=== PATIENT | female | born 1935 | race Caucasian/White ===

== ENCOUNTER 2022-09-13 12:48 | Outpatient (CLI) | payer MEDICARE, SELFPAY ==
[2022-09-13 11:08] LABS: Abs Immature Grans 0.02 10^3/uL (0.0-0.06); Absolute Basophil Count 0.04 10^3/uL (0.0-0.2); Absolute Eosinophil Count 0.16 10^3/uL (0.0-0.7); Absolute Lymphocyte Count 2.04 10^3/uL (1.2-3.4); Absolute Monocyte Count 0.66 10^3/uL (0.1-0.8); Absolute Neutrophil Count 4.44 10^3/uL (1.2-6.7); Basophils % 0.5; Eosinophils % 2.2; HCT 38.2 % (36.0-46.0); HGB 12.8 g/dL (11.2-15.7); Immature Grans % 0.3; Lymphocytes % 27.7; MCH 34.1 pg (27.0-33.0); MCHC 33.5 % (32.0-36.0); MCV 102 fL (80-95); MPV 8.6 fL (8.0-11.0); Neutrophils % 60.3; Platelet Count 201 10^3/uL (130-400); RBC 3.75 10^6/uL (3.93-5.22); RDW 12.3 % (11.7-14.6); RDW-SD 46.7 fL; WBC 7.36 10^3/uL (4.4-10.8)
[2022-09-13 11:30] LABS: ALT 16 U/L (14-59); AST 14 U/L (15-37); Albumin 3.4 g/dL (3.4-5.0); Alkaline Phosphatase 76 U/L (46-116); Anion Gap 5.2 mmol/L (3-11); BUN 28 mg/dL (7-18); Bilirubin, Total 0.4 mg/dL (0.2-1.0); CO2 29.8 mmol/L (21.0-32.0); CREATININE 0.8 mg/dL (0.55-1.02); Calcium 9.1 mg/dL (8.5-10.1); Chloride 101 mmol/L (98-107); Estimated GFR 72.16 (mL/min/1.73m2); Glucose 105 mg/dL (74-106); Potassium 4.6 mmol/L (3.5-5.1); Sodium 136 mmol/L (136-145)
== END 2022-09-13 12:49 | disposition home or self-care (01) ==
LOC: LBO 12:52
PROVIDERS: PCP Family Medicine; Visit Provider Internal Medicine Hematology & Oncology
DX: C15.3 Malignant neoplasm of upper third of esophagus (principal)
CPT/HCPCS: 36415; 80053; 85025

== ENCOUNTER 2022-09-21 02:08 | Outpatient (CLI) | payer MEDICARE, SELFPAY ==
[2022-09-21 12:14] LABS: Abs Immature Grans 0.02 10^3/uL (0.0-0.06); Absolute Basophil Count 0.02 10^3/uL (0.0-0.2); Absolute Lymphocyte Count 0.83 10^3/uL (1.2-3.4); Absolute Monocyte Count 0.24 10^3/uL (0.1-0.8); Absolute Neutrophil Count 3.16 10^3/uL (1.2-6.7); Basophils % 0.5; Eosinophils % 2.3; HCT 34.2 % (36.0-46.0); HGB 11.4 g/dL (11.2-15.7); Immature Grans % 0.5; MCH 34.3 pg (27.0-33.0); MCHC 33.3 % (32.0-36.0); MCV 103 fL (80-95); MPV 9.2 fL (8.0-11.0); Monocytes % 5.5; Neutrophils % 72.2; Platelet Count 162 10^3/uL (130-400); RBC 3.32 10^6/uL (3.93-5.22); RDW 11.8 % (11.7-14.6); RDW-SD 44.8 fL; WBC 4.37 10^3/uL (4.4-10.8)
[2022-09-21 12:34] LABS: ALT 18 U/L (14-59); AST 16 U/L (15-37); Albumin 3.2 g/dL (3.4-5.0); Alkaline Phosphatase 64 U/L (46-116); BUN 33 mg/dL (7-18); Bilirubin, Total 0.4 mg/dL (0.2-1.0); CREATININE 0.7 mg/dL (0.55-1.02); Calcium 8.7 mg/dL (8.5-10.1); Chloride 101 mmol/L (98-107); Glucose 98 mg/dL (74-106); Potassium 4.8 mmol/L (3.5-5.1); Sodium 134 mmol/L (136-145); Total Protein 6.5 g/dL (6.4-8.2)
== END 2022-09-21 02:09 | disposition home or self-care (01) ==
LOC: LBO 02:08
PROVIDERS: PCP Family Medicine; Visit Provider Internal Medicine Hematology & Oncology
DX: C15.3 Malignant neoplasm of upper third of esophagus (principal)
CPT/HCPCS: 36415; 80053; 85025

== ENCOUNTER 2022-09-28 01:47 | Outpatient (CLI) | payer MEDICARE, SELFPAY ==
[2022-09-28 13:21] LABS: Abs Immature Grans 0.02 10^3/uL (0.0-0.06); Absolute Basophil Count 0.02 10^3/uL (0.0-0.2); Absolute Neutrophil Count 3.18 10^3/uL (1.2-6.7); Basophils % 0.5; HCT 32.8 % (36.0-46.0); HGB 11.1 g/dL (11.2-15.7); Immature Grans % 0.5; Lymphocytes % 12.4; MCH 34.9 pg (27.0-33.0); MCHC 33.8 % (32.0-36.0); MCV 103 fL (80-95); MPV 9.4 fL (8.0-11.0); Monocytes % 7.5; Neutrophils % 79.1; Platelet Count 119 10^3/uL (130-400); RBC 3.18 10^6/uL (3.93-5.22); RDW 11.9 % (11.7-14.6); RDW-SD 44.4 fL; WBC 4.02 10^3/uL (4.4-10.8)
[2022-09-28 13:42] LABS: ALT 20 U/L (14-59); AST 14 U/L (15-37); Albumin 3.2 g/dL (3.4-5.0); Alkaline Phosphatase 56 U/L (46-116); Anion Gap 3.3 mmol/L (3-11); BUN 24 mg/dL (7-18); Bilirubin, Total 0.7 mg/dL (0.2-1.0); CO2 31.7 mmol/L (21.0-32.0); CREATININE 0.7 mg/dL (0.55-1.02); Calcium 8.5 mg/dL (8.5-10.1); Chloride 98 mmol/L (98-107); Glucose 128 mg/dL (74-106); Potassium 4.5 mmol/L (3.5-5.1); Sodium 133 mmol/L (136-145); Total Protein 6.7 g/dL (6.4-8.2)
== END 2022-09-28 01:48 | disposition home or self-care (01) ==
LOC: LBO 01:47
PROVIDERS: PCP Family Medicine; Visit Provider Internal Medicine Hematology & Oncology
DX: C15.3 Malignant neoplasm of upper third of esophagus (principal)
CPT/HCPCS: 36415; 80053; 85025

== ENCOUNTER 2022-10-05 02:36 | Outpatient (CLI) | payer MEDICARE, SELFPAY ==
[2022-10-05 10:36] LABS: Abs Immature Grans 0.02 10^3/uL (0.0-0.06); Absolute Basophil Count 0.01 10^3/uL (0.0-0.2); Absolute Eosinophil Count 0.02 10^3/uL (0.0-0.7); Absolute Lymphocyte Count 0.33 10^3/uL (1.2-3.4); Absolute Monocyte Count 0.37 10^3/uL (0.1-0.8); Absolute Neutrophil Count 2.72 10^3/uL (1.2-6.7); Basophils % 0.3; Eosinophils % 0.6; HCT 30.7 % (36.0-46.0); HGB 10.5 g/dL (11.2-15.7); Immature Grans % 0.6; Lymphocytes % 9.5; MCHC 34.2 % (32.0-36.0); MCV 102 fL (80-95); MPV 9.5 fL (8.0-11.0); Monocytes % 10.7; Neutrophils % 78.3; Platelet Count 135 10^3/uL (130-400); RDW 11.8 % (11.7-14.6); RDW-SD 43.4 fL; WBC 3.47 10^3/uL (4.4-10.8)
[2022-10-05 11:06] LABS: ALT 17 U/L (14-59); AST 13 U/L (15-37); Alkaline Phosphatase 59 U/L (46-116); Anion Gap 6.7 mmol/L (3-11); BUN 27 mg/dL (7-18); Bilirubin, Total 0.6 mg/dL (0.2-1.0); CO2 29.3 mmol/L (21.0-32.0); CREATININE 0.6 mg/dL (0.55-1.02); Calcium 8.6 mg/dL (8.5-10.1); Chloride 99 mmol/L (98-107); Estimated GFR 87.91 (mL/min/1.73m2); Glucose 108 mg/dL (74-106); Potassium 4.5 mmol/L (3.5-5.1); Sodium 135 mmol/L (136-145); Total Protein 6.6 g/dL (6.4-8.2)
== END 2022-10-05 02:37 | disposition home or self-care (01) ==
LOC: LBO 02:36
PROVIDERS: PCP Family Medicine; Visit Provider Internal Medicine Hematology & Oncology
DX: C15.3 Malignant neoplasm of upper third of esophagus (principal)
CPT/HCPCS: 36415; 80053; 85025

== ENCOUNTER 2022-10-12 03:10 | Outpatient (CLI) | payer MEDICARE, SELFPAY ==
[2022-10-12 11:00] LABS: Abs Immature Grans 0.01 10^3/uL (0.0-0.06); Absolute Basophil Count 0.01 10^3/uL (0.0-0.2); Absolute Eosinophil Count 0.02 10^3/uL (0.0-0.7); Absolute Lymphocyte Count 0.25 10^3/uL (1.2-3.4); Absolute Monocyte Count 0.19 10^3/uL (0.1-0.8); Absolute Neutrophil Count 1.06 10^3/uL (1.2-6.7); Basophils % 0.6; Eosinophils % 1.3; HCT 29.8 % (36.0-46.0); Immature Grans % 0.6; Lymphocytes % 16.2; MCH 34.6 pg (27.0-33.0); MCHC 33.6 % (32.0-36.0); MCV 103 fL (80-95); MPV 9.4 fL (8.0-11.0); Monocytes % 12.3; Platelet Count 112 10^3/uL (130-400); RBC 2.89 10^6/uL (3.93-5.22); RDW 11.9 % (11.7-14.6); RDW-SD 44.1 fL
[2022-10-12 11:13] LABS: Diff Comment Diff Reviewed; RBC Morphology Normal
[2022-10-12 11:16] LABS: WBC 1.54 10^3/uL (4.4-10.8)
[2022-10-12 11:23] LABS: ALT 16 U/L (14-59); AST 19 U/L (15-37); Alkaline Phosphatase 58 U/L (46-116); Anion Gap 6.9 mmol/L (3-11); BUN 31 mg/dL (7-18); Bilirubin, Total 0.5 mg/dL (0.2-1.0); CO2 29.1 mmol/L (21.0-32.0); CREATININE 0.6 mg/dL (0.55-1.02); Calcium 8.7 mg/dL (8.5-10.1); Chloride 101 mmol/L (98-107); Estimated GFR 87.91 (mL/min/1.73m2); Glucose 109 mg/dL (74-106); Potassium 4.1 mmol/L (3.5-5.1); Sodium 137 mmol/L (136-145); Total Protein 6.5 g/dL (6.4-8.2)
== END 2022-10-12 03:11 | disposition home or self-care (01) ==
LOC: LBO 03:11
PROVIDERS: PCP Family Medicine; Visit Provider Internal Medicine Hematology & Oncology
DX: C15.3 Malignant neoplasm of upper third of esophagus (principal)
CPT/HCPCS: 36415; 80053; 85025

== ENCOUNTER 2022-10-19 03:08 | Outpatient (CLI) | payer MEDICARE, SELFPAY ==
[2022-10-19 10:52] LABS: Absolute Basophil Count 0.01 10^3/uL (0.0-0.2); Absolute Eosinophil Count 0.03 10^3/uL (0.0-0.7); Absolute Lymphocyte Count 0.36 10^3/uL (1.2-3.4); Absolute Monocyte Count 0.53 10^3/uL (0.1-0.8); Absolute Neutrophil Count 1.13 10^3/uL (1.2-6.7); Basophils % 0.5; Eosinophils % 1.5; HCT 30.1 % (36.0-46.0); HGB 10.1 g/dL (11.2-15.7); Lymphocytes % 17.5; MCH 34.7 pg (27.0-33.0); MCHC 33.6 % (32.0-36.0); MCV 103 fL (80-95); MPV 9.5 fL (8.0-11.0); Monocytes % 25.7; Neutrophils % 54.8; Platelet Count 107 10^3/uL (130-400); RBC 2.91 10^6/uL (3.93-5.22); RDW 12.9 % (11.7-14.6); RDW-SD 46.6 fL; WBC 2.06 10^3/uL (4.4-10.8)
[2022-10-19 11:29] LABS: ALT 15 U/L (14-59); AST 18 U/L (15-37); Alkaline Phosphatase 63 U/L (46-116); BUN 25 mg/dL (7-18); Bilirubin, Total 0.3 mg/dL (0.2-1.0); CREATININE 0.7 mg/dL (0.55-1.02); Calcium 8.9 mg/dL (8.5-10.1); Chloride 104 mmol/L (98-107); Glucose 116 mg/dL (74-106); Potassium 4.4 mmol/L (3.5-5.1); Sodium 140 mmol/L (136-145); Total Protein 6.5 g/dL (6.4-8.2)
== END 2022-10-19 03:09 | disposition home or self-care (01) ==
LOC: LBO 03:08
PROVIDERS: PCP Family Medicine; Visit Provider Internal Medicine Hematology & Oncology
DX: C15.3 Malignant neoplasm of upper third of esophagus (principal)
CPT/HCPCS: 36415; 80053; 85025

== ENCOUNTER 2022-11-24 12:21 | Outpatient (CLI) | payer MEDICARE, SELFPAY ==
--- OUTSIDE RECORDS SUMMARY | 2022-11-24 12:23 | XMS_ITS | Continuity of Care Document ---
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 Name Role Phone Elvis Lyons Primary Care Physician Encounter [facility] Date(s): 05/12/22 - 05/12/22 [facility] [address] [place] [address] Encounter Diagnosis Wax in ear(Discharge Diagnosis) - 05/12/22 Discharge Disposition: Home or Self Care Attending Physician: Amari Love MD Admitting Physician: Amari Love MD Allergies, Adverse Reactions, Alerts No Known Medication Allergies Assessment and Plan Future Appointments Functional Status 05/12/22 Family Member Travel History No recent t ravel Recent Travel History No recent travel Other exposure to Infectious Disease Non e Immunizations Given and Recorded Vaccine Date Status Refusal Reason SARS-CoV-2 (COVID-19) mRNA-1273 vaccine 03/28/21 R ecorded SARS-CoV-2 (COVID-19) mRNA-1273 vaccine 08/20/20 R ecorded SARS-CoV-2 (COVID-19) mRNA-1273 vaccine 07/23/20 R ecorded pneumococcal 13-valent conjugate vaccine 01/12/16 Recorded tetanus/diphth/pertuss (Tdap) adult/adol 01/12/16 Recorded tetanus/diphth/pertuss (Tdap) adult/adol 05/28/98 Recorded zoster vaccine live 10/16/07 Recorded pneumococcal 23-polyvalent vaccine 05/28/94 Record ed Medications aspirin 81 mg oral capsule 81 mg = 1 cap, Oral, Daily, do not exceed 48 capsules in 24 hours, 0 Refill(s) Start Date: 02/24/22 Status: Ordered biotin 1 tab, Daily, 0 Refill(s) Start Date: 02/24/22 Status: Ordered Debrox 6.5% otic solution 0.033 g 0.5 mL, Ear-Both, Daily, # 30 mL, 0 Refill(s), Pharmacy: [id number], 163, cm, 05/12/22 14:13:00 EST, Height/Length Dosing, 58, kg, 05/12/22 14:13:00 EST, Weight Dosing Start Date: 05/12/22 Stop Date: 05/19/22 Status: Ordered Ginkgo Biloba 1 capsule, Daily, 0 Refill(s) Start Date: 02/24/22 Status: Ordered glucosamine See Instructions, 1-2 capsules daily, 0 Refill(s) Start Date: 02/24/22 Status: Ordered ibuprofen 200 mg oral tablet 600 mg = 3 tab, Daily, per pt, 0 Refill(s) Start Date: 02/24/22 Status: Ordered metoprolol succinate 50 mg oral capsule, extended release 50 mg = 1 cap, Oral, Daily, # 90 cap, 3 Refill(s), Pharmacy: [id number], 162, cm, 03/11/22 7:16:00 EDT, Height/Length Dosing, 61, kg, 03/11/22 7:16:00 EDT, Weight Dosing Start Date: 03/20/22 Status: Ordered Multi Vitamin+ 0 Refill(s) Start Date: 02/24/22 Status: Ordered Valtrex 1 g oral tablet 1 g = 1 tab, Oral, every 12 hr, # 14 tab, 0 Refill(s), Pharmacy: [id number], 162, cm, 03/11/22 7:16:00 EDT, Height/Length Dosing, 61, kg, 03/11/22 7:16:00 EDT, Weight Dosing Start Date: 03/28/22 Stop Date: 04/04/22 Status: Ordered Problem List Condition Confirmation Course Effective Dates Status H ealth Status Informant Acute COVID-19 Confirmed Active Arthropathy Confirmed Active Benign essential hypertension Confirmed Active Closed fracture of distal end of left radius Confirmed Active Cyst of left ovary Confirmed Active Elevated blood-pressure reading without diagnosis of hypertension Confirmed Active Family history of diabetes mellitus Confirmed Active Fracture of carpal bone Confirmed Active Hyperlipidemia Confirmed Active Idiopathic osteoarthritis Confirmed Active Knee pain Confirmed Active Osteoarthritis of knee Confirmed Active Pain in limb Confirmed Active Right lower quadrant pain Confirmed Active Procedures Procedure Date Related Diagnosis Body Site Status Tonsillectomy 1950 Completed Cataract extraction 1 Com pleted , 05/2010 Vital Signs Most recent to oldest [Reference Range]: 1 Temperature Temporal Artery [36-38 Deg C ] 37 Deg C (05/12/22 2:00 PM) Peripheral Pulse Rate [60-100 bpm] 62 bp m (05/12/22 2:00 PM) Respiratory Rate [12-24 br/min] 16 br/mi n (05/12/22 2:00 PM) Blood Pressure [90-140/60-90 mmHg] 129/7 5mmHg (05/12/22 2:00 PM) Weight Dosing 58.00 kg (05/12/22 2:13 PM) Weight Estimated 58.00 kg (05/12/22 2:00 PM) Height/Length Dosing 163.000 cm (05/12/22 2:13 PM) Height/Length Estimated 163.000 cm (05/12/22 2:00 PM) Social History Social History Type Response Tobacco Former tobacco user Tobacco Use:. 1 Sex Female 1Quit 1992 Hospital Discharge Instructions Patient Education 05/12/2022 13:44:49 Ear Drops, Adult Ear Drops, Adult You have been diagnosed with a condition that requires you to put drops of medicine into one ear orboth ears. This sheet gives you information about how to use ear drops. Your health care provider may also give you more specific instructions. Supplies needed: ??? Cotton balls. ??? Ear drops. How to put ear drops in your ear 1. Wash your hands thoroughly for 20 seconds with soap and water. If soap and water are not available, use hand can stacker. 2. Make sure your ears are clean and dry. If there is any earwax or drainage at the outer part of the ear canal, wipe it out gently with a cotton-tipped swab. 3. Warm up the medicine by holding it in your hand for a few minutes. 4. Gently shake the bottle to mix the ear drops. 5. Use the dropper to draw up the ear drops. 6. Hold the dropper above your ear canal and put the drops in the affected ear as instructed. Do not put the dropper into your ear at any time. It may help to pull the upper part of the ear up and back while you put the drops in. Doing this will straighten out the ear canal so the medicine can get into the canal more easily. 7. To make sure your ear soaks up the ear drops, do either of these things: ??? Lie down with the affected ear facing up for 10 minutes. This will cause the drops to stay in the ear canal and fill the canal. ??? Gently put a cotton ball in your ear canal. Leave enough of the cotton ball out so it can be easily removed. Do not push the cotton ball down into your ear with a cotton-tipped swab or other instrument. You can remove the cotton ball once the medicine has been absorbed by your ear, or after 15???30 minutes have passed. 8. If both ears need the drops, repeat the procedure for the other ear. Your health care provider will let you know if you need to put drops in both ears. 9. Wash your hands with soap and water for 20 seconds after using ear drops. If soap and water are not available, use hand can stacker. Follow these instructions at home: ??? Use the ear drops for as long as directed by your health care provider, even if you begin to feel better. ??? Always wash your hands for 20 seconds before and after handling the ear drops. ??? Keep the ear drops at room temperature. ??? Do not wash out (irrigate) your ears unless instructed by your health care provider. ??? Keep all follow-up visits as told by your health care provider. This is important. Contact a health care provider if: ??? Your condition gets worse. ??? Your pain or itching gets worse. ??? You notice any unusual drainage from your ear, especially if the drainage has a bad smell. ??? You have new trouble hearing. ??? You develop a rash around your ear. ??? You have used the ear drops for the amount of time recommended by your health care provider, but your symptoms have not improved. Get help right away if: ??? You experience a form of dizziness in which you feel as if the room is spinning and you feel like you might vomit (vertigo). ??? The outside of your ear becomes red or swollen. ??? You develop a severe headache with or without neck stiffness. Summary ??? Ear drops are a medicine that is placed in the ear. ??? Put drops in the affected ear as told by your health care provider. ??? Use the ear drops for as long as directed by your health care provider, even if you begin to feel better. ??? Keep all follow-up visits as told by your health care provider. This is important. This information is not intended to replace advice given to you by your health care provider. Make sure you discuss any questions you have with your health care provider. Document Revised: 07/07/2020 Document Reviewed: 03/10/2020 [employer] Patient Education ?? 2021 [employer]. Physician Emergency department Note * Brianne Bowen MD: PERFORM Event Display: ED Note Physician Authored Date: [id number] LALIT COE :1935 Age:86 years Sex:Female Visit Date:05/12/2022 Primary Care Physician: Elvis Lyons MD Basic Information Time Seen: Brianne Bwoen MD / 05/12/2022 14:37 Chief Complaint Three days of my ears feel plugged. History Of Present Illness: 86F?? presents to the ED c/o b/l ear fullness sensation since yesterday. Pt says she cleans her ears often, and she feels like she didn't do a good job this time. She has some decreased hearing in both ears. No congestion, no cough, no ear pain, no fever/chills. No recent fall or trauma. Review of Systems: In addition to the ROS embedded in the HPI, the patient has no Const: fever, chills,?? CV: chest pain or palpitations Pulm: shortness of breath GI: n/v/c/d or abd pain Physical Exam Vitals & Measurements T:??37?C ??(Temporal Artery)?? HR:??62??(Peripheral)?? RR:??16?? BP:??129/75?? SpO2:??99%?? HT:??163.000??cm?? WT:??58.00??kg??(Estimated)?? General: A&Ox3, Calm, no apparent distress, well developed, pleasant and cooperative ?? HEENT: Head ATNC. Eyes: MATI. Extraocular Mobility: intact and symmetrical. Conjunctiva: non-injected, anicteric, no discharge.?? Bilateral ears??with intact??tympanic??membranes, very little wax??seen. ??Oral Cavity: moist. Neck: no masses, no crepitus. Lymph Nodes: no cervical lymphadenopathy? Respiratory: CTA bilaterally, no wheezing, no rales/crackles? CV: RRR, normal S1, normal S2, no murmurs, rubs or gallops ?? Abdomen : soft, non-tender, non-distended, no rebound or guarding, no hepatosplenomegaly ?? Extremities: no le swelling, warm and well-perfused, no cyanosis, capillary refill <2 seconds? Skin: no rash, no lesions, no bruising? Neuro: normal tone, normal strength in all 4 extremities, sensation intact?? Medical Decision MakinF?? presents to the ED c/o b/l ear fullness sensation since yesterday. Exam is reassuring with intact??tympanic membranes??and no evidence of otitis externa either.?? Encouraged patient to not use Q-tips??but use Debrox??drops.?? Discharge instructions and return precautions discussed, all questions answered. Procedure No Qualifying Data Assessment/Plan 1.??Wax in ear??H61.20 Ordered: Debrox 6.5% otic solution, 0.033 g 0.5 mL, Ear-Both, Daily, # 30 mL, 0 Refill(s), Pharmacy: [id number], 163, cm, 05/12/22 14:13:00 EST, Height/Length Dosing, 58, kg, 05/12/22 14:13:00 EST, Weight Dosing Discharge Patient, 05/12/22 14:46:00 EST, Constant Indicator ?? Patient Education Ear Drops, Adult Medication Reconciliation New Prescription carbamide peroxide otic (Debrox 6.5% otic solution)0.5 Milliliters Both ears every day for 7 Days. Refills: 0. ?? Unchanged aspirin (aspirin 81 mg oral capsule)1 Capsules Oral (given by mouth) every day. do not exceed 48 capsules in 24 hours. ?? biotin1 tab every day. ?? ginkgo (Ginkgo Biloba)1 capsule every day. ?? glucosamine1-2 capsules daily. ?? ibuprofen (ibuprofen 200 mg oral tablet)3 tab every day. per pt. ?? metoprolol (metoprolol succinate 50 mg oral capsule, extended release)1 Capsules Oral (given by mouth) every day. Refills: 3. ?? multivitamin (Multi Vitamin+) ?? valACYclovir (Valtrex 1 g oral tablet)1 tab Oral (given by mouth) every 12 hours for 7 Days. Refills: 0. Problem List/Past Medical History Ongoing Acute COVID-19 Arthropathy Benign essential hypertension Closed fracture of distal end of left radius Cyst of left ovary Elevated blood-pressure reading without diagnosis of hypertension Family history of diabetes mellitus Fracture of carpal bone Hyperlipidemia Idiopathic osteoarthritis Knee pain Osteoarthritis of knee Pain in limb Right lower quadrant pain Historical No qualifying data Procedure/Surgical History ???Tonsillectomy (1950)???Cataract extraction Allergies No Known Medication Allergies Social History Alcohol Past Electronic Cigarette/Vaping Electronic Cigarette Use: Never. Employment/School Retired Home/Environment Lives with Children. Living situation: Home/Independent. Tobacco Former tobacco user Tobacco Use:.- Comments: Quit 1992 Family History Family history is negative Electronically Signed on 05/12/22 03:06 PM Brianne Bowen MD Emergency department Discharge instructions * Brianne Bowen MD: PERFORM Event Display: ED Discharge Information Authored Date: [id number] LALIT COE :1935 Age:86 years Sex:Female Visit Date:05/12/2022 Primary Care Physician: Elvis Lyons MD Discharge Instructions We would like to thank you for allowing us to assist you with your healthcare needs. The following includes patient education materials and information regarding your injury/illness. Diagnosis from Today's Visit Wax in ear Discharge Vitals Temperature??(Temporal Artery) 98.6 ??F (37 ??C) Heart Rate??(Peripheral) 62 Respiratory Rate?? 16 Blood Pressure?? 129/75?? Height?? 64.17 in (163.000 cm) Weight??(Estimated) 127.89 lb (58.00 kg) Allergies No Known Medication Allergies What to Do Next Instructions from Your Care Team Please do not use q tips when cleaning ears. Prefer drops of debrosq. Follow up with your primary care provider for reevaluation in 1-2 weeks if your symptoms persist. Return to the ED for any new orworsening symptoms. Upcoming Scheduled Appointments 2022 9:15 AM EST ?? 2022 8:40 AM EDT ?? Sunday 11:00 AM EST ?? You were treated today on an emergency basis; it may be brown to contact your primary care provider to notify them of your visit today. You may have been referred to your regular doctor or a specialist, please follow up as instructed. If your condition worsens or you can't get in to see the doctor, contact the Emergency Department. Medications What How Much When Why Instructions Next Dose New carbamide peroxide otic (Debrox 6.5% otic solution) 0.5 Milliliters Both ears Every day Wax in ear Duration: 7 Days Pickup at [facility] Unchanged aspirin (aspirin 81 mg oral capsule) 1 Capsules Oral (given by mouth) Every day do not exceed 48 capsules in 24 hours ?? Unchanged biotin 1 tab Every day Unchanged ginkgo (Ginkgo Biloba) 1 capsule Every day Unchanged glucosamine See instructions 1-2 capsules daily ?? Unchanged ibuprofen (ibuprofen 200 mg oral tablet) 3 tab Every day per pt ?? Unchanged metoprolol (metoprolol succinate 50 mg oral capsule, extended release) 1 Capsules Oral (given by mouth) Every day SVT (supraventricular tachycardia) Globus sensation Unchanged multivitamin (Multi Vitamin+) Unchanged valACYclovir (Valtrex 1 g oral tablet) 1 tab Oral (given by mouth) Every 12 hours Shingles rash Duration: 7 Days Pharmacy Information [facility]: [address], [place] [id number] [phone] Education Materials Ear Drops, Adult You have been diagnosed with a condition that requires you to put drops of medicine into one ear orboth ears. This sheet gives you information about how to use ear drops. Your health care provider may also give you more specific instructions. Supplies needed: ? Cotton balls. ? Ear drops. How to put ear drops in your ear 1.?? Wash your hands thoroughly for 20 seconds with soap and water. If soap and water are not available,use hand can stacker. 2.?? Make sure your ears are clean and dry. If there is any earwax or drainage at the outer part of the ear canal, wipe it out gently with a cotton-tipped swab. 3.?? Warm up the medicine by holding it in your hand for a few minutes. 4.?? Gently shake the bottle to mix the ear drops. 5.?? Use the dropper to draw up the ear drops. 6.?? Hold the dropper above your ear canal and put the drops in the affected ear as instructed. Do not put the dropper into your ear at any time. It may help to pull the upper part of the ear up and back while you put the drops in. Doing this will straighten out the ear canal so the medicine can get into the canal more easily. 7.?? To make sure your ear soaks up the ear drops, do either of these things: ? Lie down with the affected ear facing up for 10 minutes. This will cause the drops to stay in the ear canal and fill the canal. ? Gently put a cotton ball in your ear canal. Leave enough of the cotton ball out so it can be easilyremoved. Do not push the cotton ball down into your ear with a cotton-tipped swab or other instrument. You can remove the cotton ball once the medicine has been absorbed by your ear, or after 15???30minutes have passed. 8.?? If both ears need the drops, repeat the procedure for the other ear. Your health care provider willlet you know if you need to put drops in both ears. 9.?? Wash your hands with soap and water for 20 seconds after using ear drops. If soap and water are notavailable, use hand can stacker. Follow these instructions at home: ? Use the ear drops for as long as directed by your health care provider, even if you begin to feel better. ? Always wash your hands for 20 seconds before and after handling the ear drops. ? Keep the ear drops at room temperature. ? Do not wash out (irrigate) your ears unless instructed by your health care provider. ? Keep all follow-up visits as told by your health care provider. This is important. Contact a health care provider if: ? Your condition gets worse. ? Your pain or itching gets worse. ? You notice any unusual drainage from your ear, especially if the drainage has a bad smell. ? You have new trouble hearing. ? You develop a rash around your ear. ? You have used the ear drops for the amount of time recommended by your health care provider, but your symptoms have not improved. Get help right away if: ? You experience a form of dizziness in which you feel as if the room is spinning and you feel like you might vomit (vertigo). ? The outside of your ear becomes red or swollen. ? You develop a severe headache with or without neck stiffness. Summary ? Ear drops are a medicine that is placed in the ear. ? Put drops in the affected ear as told by your health care provider. ? Use the ear drops for as long as directed by your health care provider, even if you begin to feel better. ? Keep all follow-up visits as told by your health care provider. This is important. This information is not intended to replace advice given to you by your health care provider. Make sure you discuss any questions you have with your health care provider. Document Revised: 07/07/2020 Document Reviewed: 03/10/2020 [employer] Patient Education ?? 2021 [employer] Patient/Button Decorating Machine Operator Signature Patient Name:LALIT COE I have received this information and my questions have been answered. Patient/Button Decorating Machine Operator Name: Patient/Button Decorating Machine Operator Signature: Relationship to Patient: Witness Name/Signature: Date: Electronically Signed on: 05/12/2022 14:46 ESTSigned by:[facility] Emergency department Note * Iveth Chavez: PERFORM Event Display: ED Notes Authored Date: [id number] Patient Care team information Personnel Name: lEvis Lyons MD Address: Address: [address]
--- OUTSIDE RECORDS SUMMARY | 2022-11-24 12:23 | XMS_ITS | Continuity of Care Document ---
Author Name Unknown Organization [facility] Address [address] [place] [address] Care Team Providers Care Learning And Development Consultant Name Role Phone Elvis Lyons Primary Care Physician [phone] Encounter [facility] Date(s): 06/23/22 - 06/23/[address] [address] Discharge Disposition: Home or Self Care Attending Physician: Rito Davis MD Admitting Physician: Rito Davis MD Referring Physician: Rito Davis MD Allergies, Adverse Reactions, Alerts No Known Medication Allergies Assessment and Plan Future Appointments Future Scheduled Tests Radiology* CT Chest/Abd/Pelvis w/ Contrast 06/20/22 Functional Status 06/23/22 ADLs Independent Family Member Travel History No recent t ravel Recent Travel History No recent travel Other exposure to Infectious Disease Non e 06/20/22 Living Situation Home independently Immunizations Given and Recorded Vaccine Date Status [...] Daily, # 30 mL, 0 Refill(s), Pharmacy: [email or web address] #[id number], 163, cm, 05/12/22 14:13:00 EST, Height/Length [...] Daily, # 90 cap, 3 Refill(s), Pharmacy: [email or web address] #58, 162, cm, 03/11/22 7:16:00 EDT, Height/Length Dosing, 61, kg, 03/11/22 7:16:00 EDT, Weight Dosing Start Date: 03/20/22 Status: Ordered Multi Vitamin+ 0 Refill(s) Start Date: 02/24/22 Status: Ordered Valtrex 1 g oral tablet 1 g = 1 tab, Oral, every 12 hr, # 14 tab, 0 Refill(s), Pharmacy: [email or web address] #58, 162, cm, 03/11/22 7:16:00 EDT, Height/Length [...] Most recent to oldest [Reference Range]: 1 2 3 Temperature Oral [35.8-37.3 Deg C] 36.9 Deg C (06/23/22 12:29 PM) Temperature Temporal Artery [36-38 Deg C] 36.3 Deg C (06/23/22 2:45 PM) 36.3 Deg C (06/23/22 2:16 PM) Temperature Temporal Artery (DegF) [97.3-100 Deg F] 97.34 Deg F (06/23/22 2:45 PM) 97.34 Deg F (06/23/22 2:16 PM) Peripheral Pulse Rate [60-100 bpm] 79 bpm (06/23/22 2:45 PM) 83 bpm (06/23/22 2:30 PM) 69 bpm (06/23/22 2:25 PM) Heart Rate Monitored [60-100 bpm] 80 bpm (06/23/22 2:45 PM) 81 bpm (06/23/22 2:30 PM) 70 bpm (06/23/22 2:25 PM) Respiratory Rate [12-24 br/min] 14 br/min (06/23/22 2:45 PM) 19 br/min (06/23/22 2:30 PM) 22 br/min (06/23/22 2:25 PM) Blood Pressure [90-140/60-90 mmHg] 160/73mmHg *HI* (06/23/22 2:45 PM) 130/86mmHg (06/23/22 2:30 PM) 124/101mmHg (06/23/22 2:25 PM) Mean Arterial Pressure, Cuff [65-140 mmHg] 102 mmHg (06/23/22 2:45 PM) 101 mmHg (06/23/22 2:30 PM) 109 mmHg (06/23/22 2:25 PM) Weight 56.600 kg (06/23/22 12:29 PM) Weight Dosing 56.600 kg (06/23/22 12:29 PM) Height 163.000 cm (06/23/22 12:29 PM) Height/Length Dosing 163.000 cm (06/23/22 12:29 PM) Body Mass Index 21.300 kg/m2 (06/23/22 12:29 PM) Social History Social History Type Response Tobacco Former tobacco user Tobacco Use:. 1 Sex Female 1Quit 1992 Hospital Discharge Instructions Patient Education 06/23/2022 13:40:25 ss UPPER ENDOSCOPY OR GASTROSCOPY (CUSTOM) UPPER ENDOSCOPY OR GASTROSCOPY FOLLOWING DAY: ??? Return to full activity, including work. DIET: Eat and drink normally, unless instructed otherwise. TREATMENT FOR COMMON AFTER EFFECTS: Sore throat: ??? Treat with throat lozenges; gargle with warm salt water. Mild abdominal pain and bloating: ??? Rest and take liquids. SYMPTOMS TO WATCH FOR AND REPORT TO YOUR PHYSICIAN: 1. Chills or fever occurring within 24 hours after procedure. 2. Pain in chest. 3. SEVERE abdominal pain or bloating. 4. If sclerotherapy or dilatation was performed, notify physician for vomiting or bright red blood or dark stools. Do not attempt to drive a vehicle or operate power equipment of any kind for at least 24 hours after discharge from the hospital. Do not consume alcoholic beverages or other mood-altering drugs on the day of surgery. Mild irritation at needle site: a. Apply warm, moist pack to area for 20 minutes four times a day for 2-3 days. b. Call physician if persistent redness and/or drainage at needle site. Doctor: Diagnosis: Follow up appointment: In the event of any problems after surgery, do not hesitate to contact your doctor, [facility] , or the Emergency Room at [phone]. 06/23/2022 13:36:19 ss UPPER ENDOSCOPY OR GASTROSCOPY (CUSTOM) UPPER ENDOSCOPY OR GASTROSCOPY FOLLOWING DAY: ??? Return to full activity, including work. DIET: Eat and drink normally, unless instructed otherwise. TREATMENT FOR COMMON AFTER EFFECTS: Sore throat: ??? Treat with throat lozenges; gargle with warm salt water. Mild abdominal pain and bloating: ??? Rest and take liquids. SYMPTOMS TO WATCH FOR AND REPORT TO YOUR PHYSICIAN: 1. Chills or fever occurring within 24 hours after procedure. 2. Pain in chest. 3. SEVERE abdominal pain or bloating. 4. If sclerotherapy or dilatation was performed, notify physician for vomiting or bright red blood or dark stools. Do not attempt to drive a vehicle or operate power equipment of any kind for at least 24 hours after discharge from the hospital. Do not consume alcoholic beverages or other mood-altering drugs on the day of surgery. Mild irritation at needle site: a. Apply warm, moist pack to area for 20 minutes four times a day for 2-3 days. b. Call physician if persistent redness and/or drainage at needle site. Doctor: Diagnosis: Follow up appointment: In the event of any problems after surgery, do not hesitate to contact your doctor, [facility] , or the Emergency Room at [phone]. Discharge instructions * Hong Jean RN: PERFORM Event Display: Discharge Instructions Authored Date: [id number] LALIT COE :1935 Age:86 years Sex:Female Visit Date:06/23/2022 Primary Care Physician: Elvis Lyons MD Hospital Discharge Instructions We would like to thank you for allowing us to assist you with your healthcare needs. The following includes patient education materials and information regarding your injury/illness. After you leave the hospital, you may get your health information including your test results, physician notes and discharge information by accessing your Patient Portal. Your Next Steps Instructions From Your Care Team Dr. Davis or Office will call with pathology results within 5-7 days. Discharge Orders Discharge Patient Instructions, Rest today. Resume diet and activities as tolerated. Scheduled Future Appointments Sunday 8:20 AM EDT ?? With: Elvis Lyons MD Where: [facility] [address] [address] Status: Confirmed Sunday 11:00 AM EST ?? With: Elvis Lyons MD Where: [facility] [address] [address] Status: Confirmed Your Summary Your Care Team Admitting Physician - Rito Davis MD Attending Physician - Rito Davis MD Primary Care Physician - Elvis Lyons MD Referring Physician - Rito Davis MD Allergies No Known Medication Allergies Education Materials UPPER ENDOSCOPY OR GASTROSCOPY FOLLOWING DAY: ??? Return to full activity, including work. DIET: Eat and drink normally, unless instructed otherwise. TREATMENT FOR COMMON AFTER EFFECTS: Sore throat: ??? Treat with throat lozenges; gargle with warm salt water. Mild abdominal pain and bloating: ??? Rest and take liquids. SYMPTOMS TO WATCH FOR AND REPORT TO YOUR PHYSICIAN: 1. Chills or fever occurring within 24 hours after procedure. 2. Pain in chest. 3. SEVERE abdominal pain or bloating. 4. If sclerotherapy or dilatation was performed, notify physician for vomiting or bright red blood or dark stools. Do not attempt to drive a vehicle or operate power equipment of any kind for at least 24 hours after discharge from the hospital. Do not consume alcoholic beverages or other mood-altering drugs on the day of surgery. Mild irritation at needle site: a. Apply warm, moist pack to area for 20 minutes four times a day for 2-3 days. b. Call physician if persistent redness and/or drainage at needle site. ? Doctor: Diagnosis: Follow up appointment: ? In the event of any problems after surgery, do not hesitate to contact your doctor, [facility] , or the Emergency Room at [phone]. Patient Name:LALIT COE I have received this information and my questions have been answered. Patient/Budget Examiner Name: Patient/Budget Examiner Signature: Relationship to Patient: Witness Name/Signature: Date: Electronically Signed on: 06/23/2022 14:40 ESTSigned by:TD History and physical note * Rito Davis MD: PERFORM Event Display: History and Physical Authored Date: [id number] LALIT COE :1935 Age:86 years Sex:Female Visit Date:06/23/2022 Primary Care Physician: Elvis Lyons MD See paper H&P along with original surgical consultation with Dr. Ugalde on 06/16/22; pt examined.Proceed as planned.? Rito Davis MD 06/23/2022 ?? Electronically Signed on 06/23/22 12:57 PM Rito Davis MD * Kenzie Dawkins: PERFORM Event Display: History and Physical Authored Date: [id number] LALIT COE :1935 Age:86 years Sex:Female Primary Care Physician: Elvis Lyons MD Patient saw Dr. Ugalde in office in May. 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
--- OUTSIDE RECORDS SUMMARY | 2022-11-24 12:23 | XMS_ITS | Continuity of Care Document ---
Author Name Unknown Organization [facility] Address [address] [place] [address] Care Team Providers Care Industrial Electrical Technician Name Role Phone Elvis Lyons Primary Care Physician Encounter [facility] Date(s): 03/11/22 - 03/11/22 [facility] [address] [place] [address] Encounter Diagnosis SVT (supraventricular tachycardia)(Discharge Diagnosis) - 03/11/22 Globus sensation(Discharge Diagnosis) - 03/11/22 Discharge Disposition: Home or Self Care Attending Physician: Ismael Chase MD Admitting Physician: Ismael Chase MD Allergies, Adverse Reactions, Alerts No Known Medication Allergies Assessment and Plan Future Appointments Functional Status 03/11/22 Family Member Travel History No recent t ravel Recent Travel History No recent travel Other exposure to Infectious Disease Com munity exposure to COVID-19 within the last 14 days Immunizations Given and Recorded Vaccine Date Status [...] 0 Refill(s) Start Date: 02/24/22 Status: Ordered Ginkgo Biloba 1 capsule, Daily, 0 Refill(s) Start Date: 02/24/22 Status: Ordered glucosamine See Instructions, 1-2 capsules daily, 0 Refill(s) Start Date: 02/24/22 Status: Ordered ibuprofen 200 mg oral tablet 600 mg = 3 tab, Daily, per pt, 0 Refill(s) Start Date: 02/24/22 Status: Ordered loratadine 10 mg oral tablet 1 tab, Oral, Daily, 0 Refill(s) Start Date: 02/24/22 Status: Ordered metoprolol succinate 50 mg oral capsule, extended release 50 mg = 1 cap, Oral, Daily, # 30 cap, 0 Refill(s), Pharmacy: [facility], 162, cm, 03/11/22 7:16:00 EDT, Height/Length Dosing, 61, kg, 03/11/22 7:16:00 EDT, Weight Dosing Start Date: 03/11/22 Status: Ordered Multi Vitamin+ 0 Refill(s) Start Date: 02/24/22 Status: Ordered Paxlovid 150 mg-100 mg (300 mg-100 mg Dose) oral tablet 2 tab, Oral, BID, RENAL DOSING (30-60 ml/min). Take one 150 mg nirmatrelvir tablet with one 100 mg ritonavir tablet at the same time as indicated on the blister cards. Provide Fact Sheet for Patients/Caregivers, # 20 tab, 0 Refill(s), Pharmacy: [facility]... Start Date: 03/06/22 Stop Date: 03/11/22 Status: Ordered Problem List Condition Confirmation Course [...] Cataract extraction 1 Com pleted , 05/2010 Results Laboratory List Name Date CBC w/ Diff 03/11/22 Comprehensive Metabolic Panel (CMP) 02/25 10/16 Magnesium Level 03/11/22 Automated Diff 03/11/22 Most recent to oldest [Reference Range]: 1 WBC [5.0-10.0 x10^3/mcL] 6.4 x10^3/mcL (03/11/22 7:36 AM) RBC [4.1-5.3 x10^6/mcL] 3.8 x10^6/mcL *LOW* (03/11/22 7:36 AM) Neutro Auto [40.0-75.0 %] 64.4 % (03/11/22 7:36 AM) Lymph Auto [20.0-50.0 %] 23.9 % (03/11/22 7:36 AM) Coke Auto [2.0-15.0 %] 8.9 % (03/11/22 7:36 AM) Basophil Auto [0.0-1.0 %] 0.2 % (03/11/22 7:36 AM) BUN [7-18 mg/dL] 8 mg/dL (03/11/22 7:36 AM) Glucose Level [74-106 mg/dL] 104 mg/dL (03/11/22 7:36 AM) Potassium Level [3.5-5.1 mmol/L] 3.7 mmo l/L (03/11/22 7:36 AM) MCV [80.0-103.0 fL] 98.4 fL (03/11/22 7:36 AM) AST [15-37 unit/L] 22 unit/L (03/11/22 7:36 AM) ALT [16-63 unit/L] 27 unit/L (03/11/22 7:36 AM) MCHC [31.0-35.0 g/dL] 34.7 g/dL (03/11/22 7:36 AM) Sodium Level [136-145 mmol/L] 135 mmol/L *LOW* (03/11/22 7:36 AM) Hct [37.0-47.0 %] 37.5 % (03/11/22 7:36 AM) Calcium Level [8.5-10.1 mg/dL] 8.6 mg/dL (03/11/22 7:36 AM) Albumin Level [3.4-5.0 g/dL] 3.3 g/dL *LOW* (03/11/22 7:36 AM) Protein Total [6.4-8.2 g/dL] 6.7 g/dL (03/11/22 7:36 AM) MCH [26.0-32.0 pg] 34.1 pg *HI* (03/11/22 7:36 AM) Magnesium Level [1.8-2.4 mg/dL] 1.8 mg/d L (03/11/22 7:36 AM) Neutro Absolute 4.1 x10^3/mcL *NA* (03/11/22 7:36 AM) Bilirubin Total [0.2-1.0 mg/dL] 0.6 mg/d L (03/11/22 7:36 AM) Hgb [12.0-16.0 g/dL] 13.0 g/dL (03/11/22 7:36 AM) Alk Phos [46-146 unit/L] 81 unit/L (03/11/22 7:36 AM) Platelets [130-450 x10^3/mcL] 170 x10^3/ mcL (03/11/22 7:36 AM) CO2 [21-32 mmol/L] 26 mmol/L (03/11/22 7:36 AM) eGFR Non-AA [>=60] 79 (03/11/22 7:36 AM) eGFR AA [>=60] 79 (03/11/22 7:36 AM) Chloride Level [98-107 mmol/L] 99 mmol/L (03/11/22 7:36 AM) RDW-CV [11.7-17.0 %] 12.2 % (03/11/22 7:36 AM) Imm Gran Auto [0.0-0.9 %] 0.2 % (03/11/22 7:36 AM) Creatinine Level [0.55-1.02 mg/dL] 0.74 mg/dL (03/11/22 7:36 AM) Anion Gap [8-16 mmol/L] 12 mmol/L (03/11/22 7:36 AM) Eos, Auto [1.0-6.0 %] 2.4 % (03/11/22 7:36 AM) Vital Signs Most recent to oldest [Reference Range]: 1 2 3 Temperature Temporal Artery [36-38 Deg C] 37.3 Deg C (03/11/22 7:50 AM) 37.3 Deg C (03/11/22 7:25 AM) 35.1 Deg C *LOW* (03/11/22 7:12 AM) Temperature Temporal Artery (DegF) [97.3-100 Deg F] 99.14 Deg F (03/11/22 7:50 AM) 99.14 Deg F (03/11/22 7:25 AM) Peripheral Pulse Rate [60-100 bpm] 78 bpm (03/11/22 8:15 AM) 77 bpm (03/11/22 8:00 AM) 80 bpm (03/11/22 7:45 AM) Heart Rate Monitored [60-100 bpm] 78 bpm (03/11/22 8:15 AM) 78 bpm (03/11/22 8:00 AM) 81 bpm (03/11/22 7:45 AM) Respiratory Rate [12-24 br/min] 12 br/min (03/11/22 8:15 AM) 10 br/min *LOW* (03/11/22 8:00 AM) 16 br/min (03/11/22 7:45 AM) Blood Pressure [90-140/60-90 mmHg] 145/81mmHg *HI* (03/11/22 8:15 AM) 139/74mmHg (03/11/22 8:00 AM) 148/89mmHg *HI* (03/11/22 7:45 AM) Weight Dosing 61.00 kg (03/11/22 7:16 AM) Weight Estimated 61.00 kg (03/11/22 7:12 AM) Height/Length Dosing 162.000 cm (03/11/22 7:16 AM) Height/Length Estimated 162.000 cm (03/11/22 7:12 AM) Social History Social History Type Response Tobacco Former tobacco user Tobacco Use:. 1 Sex Female 1Quit 1992 Hospital Discharge Instructions Patient Education 03/11/2022 07:27:27 Supraventricular Tachycardia, Adult Supraventricular Tachycardia, Adult Supraventricular tachycardia (SVT) is a type of abnormal heart rhythm. It causes the heart to beat very quickly. SVT can start suddenly and last for a short time, which is called paroxysmal SVT, or it may last longer and require specialized treatment to return the heart rhythm to normal. A normal resting heart rate is 60???100 beats per minute. During an episode of SVT, your heart ratemay be higher than 150 beats per minute. Episodes of SVT can be frightening, but they are usually not dangerous. However, if episodes happen several times a day or last longer than a few seconds, they may lead to heart failure. What are the causes? Usually, a normal heartbeat starts when an area called the sinoatrial node releases an electrical signal. In SVT, other areas of the heart send out electrical signals that interfere with the signal from the sinoatrial node. The cause of this abnormal electrical activity is not known. What increases the risk? You are more likely to develop this condition if you are: ??? Middle aged or younger. ??? Female. The following factors may also make you more likely to develop this condition: ??? Stress or anxiety. ??? Tiredness. ??? Smoking. ??? Stimulant drugs, such as cocaine and methamphetamine. ??? Alcohol. ??? Caffeine. ??? . ??? Having any of these conditions: ??? A thyroid condition. ??? Diabetes mellitus. ??? Obstructive sleep apnea. What are the signs or symptoms? Symptoms of this condition include: ??? A pounding heart. ??? A feeling that the heart is skipping beats (palpitations). ??? Weakness. ??? Shortness of breath. ??? Tightness or pain in your chest. ??? Light-headedness or dizziness. ??? Anxiety. ??? Sweating. ??? Nausea. ??? Fainting. ??? Fatigue or tiredness. A mild episode may not cause symptoms. How is this diagnosed? This condition may be diagnosed based on: ??? Your symptoms. ??? A physical exam. If you have an episode of SVT during the exam, the health care provider may beable to diagnose SVT by listening to your heart and feeling your pulse. ??? Tests. These may include: ??? An electrocardiogram (ECG). This test is done to check for problems with electrical activity inthe heart. ??? A Holter monitor or event monitor test. This test involves wearing a portable device that monitors your heart rate over time. ??? An echocardiogram. This test involves taking an image of your heart using sound waves. It is done to rule out other causes of a fast heart rate. ??? A stress echocardiogram. This test involves doing an echocardiogram when you are at rest and after exercise. ??? Blood tests. ??? An electrophysiology study (EPS). This tests the electrical activity in your heart to find where the abnormal heart rhythm is coming from using cardiac catheters. How is this treated? This condition may be treated with: ??? Vagal nerve stimulation. This involves stimulating your vagus nerve, which is a nerve that runsfrom the chest, through the neck, to the lower part of the brain. Stimulating this nerve can slow down the heart. It is often the first and only treatment that is needed for this condition. Work withyour health care provider to find which technique works best for you. Ways to do this treatment include: ??? Laying on your back, then holding your breath and pushing, as though you are having a bowel movement. ??? Massaging an area on one side of your neck, below your jaw. Do not try this yourself. Only a health care provider should do this. If done the wrong way, it can lead to a stroke. ??? Bending forward with your head between your legs. ??? Coughing while bending forward with your head between your legs. ??? Applying an ice-cold, wet towel to your face. ??? Medicines that prevent attacks. ??? Medicine to stop an attack. The medicine is given through an IV at the hospital. ??? A small electric shock (cardioversion) that stops an attack. Before you get the shock, you willget medicine to make you fall asleep. ??? Radiofrequency ablation. In this procedure, a small, thin tube (catheter) is used to send radiofrequency energy to the area of tissue that is causing the rapid heartbeats. The energy kills the cells and helps your heart keep a normal rhythm. You may have this treatment if you have symptoms of SVT often. If you do not have symptoms, you may not need treatment. Follow these instructions at home: Stress ??? Avoid stressful situations when possible. ??? Find healthy ways of managing stress, such as: ??? Taking part in relaxing activities, such as yoga, meditation, or being out in nature. ??? Listening to relaxing music. ??? Practicing relaxation techniques, such as deep breathing. ??? Leading a healthy lifestyle. This involves getting plenty of sleep, exercising, and eating a balanced diet. ??? Attending counseling or talk therapy with a mental health professional. Lifestyle ??? Try to get at least 7 hours of sleep each night. ??? Do not use any products that contain nicotine or tobacco. These products include cigarettes, chewing tobacco, and vaping devices, such as e-cigarettes. If you need help quitting, ask your health care provider. ??? Do not drink alcohol if it triggers episodes of SVT. ??? If alcohol does not seem to trigger episodes, limit your alcohol intake. If you drink alcohol: ??? Limit how much you have to: ??? 0???1 drink a day for women who are not . ??? 0???2 drinks a day for men. ??? Know how much alcohol is in your drink. In the [place] one drink equals one 12 oz bottle of beer (355 mL), one 5 oz glass of wine (148 mL), or one 1?? oz glass of hard liquor (44 mL). ??? Be aware of how caffeine affects your condition. If caffeine: ??? Triggers episodes of SVT, do not eat, drink, or use anything with caffeine in it. ??? Does not seem to trigger episodes, consume caffeine in moderation. ??? Do not use stimulant drugs. If you need help quitting, talk with your health care provider. General instructions ??? Maintain a healthy weight. ??? Exercise regularly. Ask your health care provider to suggest some good activities for you. Aim for one or a combination of the following: ??? 150 minutes per week of moderate exercise, such as walking or yoga. ??? 75 minutes per week of vigorous exercise, such as running or swimming. ??? Perform vagus nerve stimulation as directed by your health care provider. ??? Take [id number] and prescription medicines only as told by your health care provider. ??? Keep all follow-up visits. This is important. Contact a health care provider if: ??? You have episodes of SVT more often than before. ??? Episodes of SVT last longer than before. ??? Vagus nerve stimulation is no longer helping. ??? You have new symptoms. Get help right away if: ??? You have chest pain. ??? Your symptoms get worse. ??? You have trouble breathing. ??? You have an episode of SVT that lasts longer than 20 minutes. ??? You faint. These symptoms may represent a serious problem that is an emergency. Do not wait to see if the symptoms will go away. Get medical help right away. Call your local emergency services (911 in the [place] Do not drive yourself to the hospital. Summary ??? Supraventricular tachycardia (SVT) is a type of abnormal heart rhythm. ??? During an episode of SVT, your heart rate may be higher than 150 beats per minute. ??? If you do not have symptoms, you may not need treatment. This information is not intended to replace advice given to you by your health care provider. Make sure you discuss any questions you have with your health care provider. Document Revised: 12/25/2020 Document Reviewed: 12/25/2020 [employer] Patient Education ?? 2021 [employer] Follow Up Care 03/11/2022 07:12:33 With:Elvis Lyons MD Address: [place] [address]- When:1 month Patient Care team information Personnel Name: Elvis Lyons MD Address: Address: [address]
--- OUTSIDE RECORDS SUMMARY | 2022-11-24 12:23 | XMS_ITS | Continuity of Care Document ---
Author Name Unknown Organization [facility] Address [address] [place] [address] Care Team Providers Care Mixing Technician Name Role Phone Elvis Lyons Primary Care Physician [phone] Encounter [facility] Date(s): 02/21/22 - 02/21/[address] [address] Encounter Diagnosis Tachycardia(Discharge Diagnosis) - 02/21/22 Discharge Disposition: Home Attending Physician: Amari Love MD Admitting Physician: Amari Love MD Allergies, Adverse Reactions, Alerts No Known Medication Allergies Assessment and Plan Future Appointments Functional Status 02/21/22 Family Member Travel History No recent t [...] Recorded pneumococcal 23-polyvalent vaccine 05/28/94 Record ed Results Laboratory List Name Date CBC w/ Diff 02/21/22 Comprehensive Metabolic Panel 02/21/22 Thyroid Stimulating Hormone (TSH) 2 Automated Diff 02/21/22 Most recent to oldest [Reference Range]: 1 WBC [5.0-10.0 x10^3/mcL] 6.4 x10^3/mcL (02/21/22 8:02 AM) RBC [4.1-5.3 x10^6/mcL] 4.0 x10^6/mcL *LOW* (02/21/22 8:02 AM) Neutro Auto [40.0-75.0 %] 58.4 % (02/21/22 8:02 AM) Lymph Auto [20.0-50.0 %] 28.2 % (02/21/22 8:02 AM) Irion Auto [2.0-15.0 %] 8.7 % (02/21/22 8:02 AM) Basophil Auto [0.0-1.0 %] 0.8 % (02/21/22 8:02 AM) BUN [7-18 mg/dL] 15 mg/dL (02/21/22 8:02 AM) Glucose Level [74-106 mg/dL] 122 mg/dL *HI* (02/21/22 8:02 AM) Potassium Level [3.5-5.1 mmol/L] 4.3 mmo l/L (02/21/22 8:02 AM) MCV [80.0-103.0 fL] 102.2 fL (02/21/22 8:02 AM) AST [15-37 unit/L] 18 unit/L (02/21/22 8:02 AM) ALT [16-63 unit/L] 21 unit/L (02/21/22 8:02 AM) MCHC [31.0-35.0 g/dL] 32.4 g/dL (02/21/22 8:02 AM) Sodium Level [136-145 mmol/L] 138 mmol/L (02/21/22 8:02 AM) Hct [37.0-47.0 %] 41.0 % (02/21/22 8:02 AM) Calcium Level [8.5-10.1 mg/dL] 8.9 mg/dL (02/21/22 8:02 AM) Albumin Level [3.4-5.0 g/dL] 3.4 g/dL (02/21/22 8:02 AM) Protein Total [6.4-8.2 g/dL] 6.9 g/dL (02/21/22 8:02 AM) MCH [26.0-32.0 pg] 33.2 pg *HI* (02/21/22 8:02 AM) Neutro Absolute 3.8 x10^3/mcL *NA* (02/21/22 8:02 AM) Bilirubin Total [0.2-1.0 mg/dL] 0.5 mg/d L (02/21/22 8:02 AM) Hgb [12.0-16.0 g/dL] 13.3 g/dL (02/21/22 8:02 AM) Alk Phos [46-146 unit/L] 78 unit/L (02/21/22 8:02 AM) Platelets [130-450 x10^3/mcL] 190 x10^3/ mcL (02/21/22 8:02 AM) CO2 [21-32 mmol/L] 28 mmol/L (02/21/22 8:02 AM) TSH [0.358-3.740 mcIntlUnit/mL] 5.806 mc IntlUnit/mL *HI* (02/21/22 8:02 AM) eGFR Non-AA [>=60] 63 (02/21/22 8:02 AM) eGFR AA [>=60] 63 (02/21/22 8:02 AM) Chloride Level [98-107 mmol/L] 103 mmol/ L (02/21/22 8:02 AM) RDW-CV [11.7-17.0 %] 12.3 % (02/21/22 8:02 AM) Imm Gran Auto [0.0-0.9 %] 0.2 % (02/21/22 8:02 AM) Creatinine Level [0.55-1.02 mg/dL] 0.89 mg/dL (02/21/22 8:02 AM) Anion Gap [8-16 mmol/L] 7 mmol/L *LOW* (02/21/22 8:02 AM) Eos, Auto [1.0-6.0 %] 3.7 % (02/21/22 8:02 AM) Vital Signs Most recent to oldest [Reference Range]: 1 2 3 Temperature Temporal Artery [36-38 Deg C] 36.0 Deg C (02/21/22 7:19 AM) Peripheral Pulse Rate [60-100 bpm] 85 bpm (02/21/22 9:31 AM) 142 bpm *HI* (02/21/22 7:26 AM) 103 bpm *HI* (02/21/22 7:26 AM) Heart Rate Monitored [60-100 bpm] 87 bpm (02/21/22 9:31 AM) 79 bpm (02/21/22 8:49 AM) 74 bpm (02/21/22 8:17 AM) Respiratory Rate [12-24 br/min] 16 br/min (02/21/22 9:31 AM) 18 br/min (02/21/22 8:49 AM) 14 br/min (02/21/22 8:17 AM) Blood Pressure [90-140/60-90 mmHg] 141/74mmHg *HI* (02/21/22 8:49 AM) 130/68mmHg (02/21/22 8:17 AM) 172/75mmHg *HI* (02/21/22 7:19 AM) Weight Dosing 62.14 kg (02/21/22 7:26 AM) Weight Estimated 62.14 kg (02/21/22 7:19 AM) Height/Length Dosing 162.000 cm (02/21/22:26 AM) Height/Length Estimated 162.000 cm (02/21/22 7:19 AM) Social History Social History Type Response Tobacco Never tobacco user T obacco Use:. Sex Female Hospital Discharge Instructions Patient Education 02/21/2022 07:57:46 Sinus Tachycardia Sinus Tachycardia Sinus tachycardia is a kind of fast heartbeat. In sinus tachycardia, the heart beats more than 100 times a minute. Sinus tachycardia starts in a part of the heart called the sinus node. Sinus tachycardia may be harmless, or it may be a sign of a serious condition. What are the causes? This condition may be caused by: ??? Exercise or exertion. ??? A fever. ??? Pain. ??? Loss of body fluids (dehydration). ??? Severe bleeding (hemorrhage). ??? Anxiety and stress. ??? Certain substances, including: ??? Alcohol. ??? Caffeine. ??? Tobacco and nicotine products. ??? Cold medicines. ??? Illegal drugs. ??? Medical conditions including: ??? Heart disease. ??? An infection. ??? An overactive thyroid (hyperthyroidism). ??? A lack of red blood cells (anemia). What are the signs or symptoms? Symptoms of this condition include: ??? A feeling that the heart is beating quickly (palpitations). ??? Suddenly noticing your heartbeat (cardiac awareness). ??? Dizziness. ??? Tiredness (fatigue). ??? Shortness of breath. ??? Chest pain. ??? Nausea. ??? Fainting. How is this diagnosed? This condition is diagnosed with: ??? A physical exam. ??? Other tests, such as: ??? Blood tests. ??? An electrocardiogram (ECG). This test measures the electrical activity of the heart. ??? Ambulatory door attendant. This records your heartbeats for 24 hours or more. You may be referred to a site acquisition specialist (gag writer). How is this treated? Treatment for this condition depends on the cause or the underlying condition. Treatment may involve: ??? Treating the underlying condition. ??? Taking new medicines or changing your current medicines as told by your health care provider. ??? Making changes to your diet or lifestyle. Follow these instructions at home: Lifestyle ??? Do not use any products that contain nicotine or tobacco, such as cigarettes and e-cigarettes. If you need help quitting, ask your health care provider. ??? Do not use illegal drugs, such as cocaine. ??? Learn relaxation methods to help you when you get stressed or anxious. These include deep breathing. ??? Avoid caffeine or other stimulants. Alcohol use ??? Do not drink alcohol if: ??? Your health care provider tells you not to drink. ??? You are , may be , or are planning to become . ??? If you drink alcohol, limit how much you have: ??? 0???1 drink a day for women. ??? 0???2 drinks a day for men. ??? Be aware of how much alcohol is in your drink. In the [place] one drink equals one typical bottleof beer (12 oz), one-half glass of wine (5 oz), or one shot of hard liquor (1?? oz). General instructions ??? Drink enough fluids to keep your urine pale yellow. ??? Take [id number] and prescription medicines only as told by your health care provider. ??? Keep all follow-up visits as told by your health care provider. This is important. Contact a health care provider if you have: ??? A fever. ??? Vomiting or diarrhea that does not go away. Get help right away if you: ??? Have pain in your chest, upper arms, jaw, or neck. ??? Become weak or dizzy. ??? Feel faint. ??? Have palpitations that do not go away. Summary ??? In sinus tachycardia, the heart beats more than 100 times a minute. ??? Sinus tachycardia may be harmless, or it may be a sign of a serious condition. ??? Treatment for this condition depends on the cause or the underlying condition. ??? Get help right away if you have pain in your chest, upper arms, jaw, or neck. This information is not intended to replace advice given to you by your health care provider. Make sure you discuss any questions you have with your health care provider. Document Revised: 07/03/2018 Document Reviewed: 07/03/2018 [employer] Patient Education ?? 2021 [employer]. Follow Up Care 02/21/2022 07:19:28 With:Follow up with primary care provider Address: When:1 to 2 days Comments:You been seen in the emergency department and no emergent medical condition has been identified. ??It is recommended that you follow-up with your primary care provider within the next??48 hours. ??Ifyour condition worsens or you are unable to??arrange for appropriate follow-up please??reach out tot emergency department by phone or return to the emergency department for repeat evaluation. Patient Care team information Personnel Name: Elvis Lyons MD Address: Address: [id number] [place] [address]
--- OUTSIDE RECORDS SUMMARY | 2022-11-24 12:23 | XMS_ITS | Continuity of Care Document ---
Author Name Unknown Organization [facility] Address [address] [place] [address] Care Team Providers Care Gold Miner Name Role Phone Elvis Lyons Primary Care Physician [phone] Encounter [facility] Date(s): 11/22/22 - 11/22/[address] [address] Discharge Disposition: Home or Self Care Attending Physician: Keke Nicole APRN Admitting Physician: Keke Nicole APRN Referring Physician: Keke Nicole APRN Allergies, Adverse Reactions, Alerts No Known Medication Allergies Assessment and Plan Future Appointments Future Scheduled Tests Radiology* CT Chest/Abd/Pelvis w/ Contrast 06/20/22 Immunizations Given and Recorded Vaccine Date Status [...] Daily, # 90 cap, 3 Refill(s), Pharmacy: [facility] #58, 162, cm, 03/11/22 7:16:00 EDT, Height/Length Dosing, 61, kg, 03/11/22 7:16:00 EDT, Weight Dosing Start Date: 03/20/22 Status: Ordered Multi Vitamin+ 0 Refill(s) Start Date: 02/24/22 Status: Ordered Problem List Condition Confirmation Course Effective Dates Status H ealth Status Informant Acute COVID-19 Confirmed Active 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 1 Sex Female 1Quit 1992 Patient Care team information Care Team Personnel Name: Elvis Lyons MD Position: Physician Member Role: Informed Provider Address: Address: [id number] [place] [address] Care Team Related Persons Name: RENARD COE Address: Home Name: SHAW MERCADO Address: Home
--- OUTSIDE RECORDS SUMMARY | 2022-11-24 12:23 | XMS_ITS | Continuity of Care Document ---
Author Name Unknown Organization [facility] Address [address] [place] [address] Care Team Providers Care Clinical Services Director Name Role Phone Elvis Lyons Primary Care Physician Encounter [facility] Date(s): 06/16/22 - 06/16/[address] [address] Encounter Diagnosis Dysphagia(Discharge Diagnosis) - 06/16/22 Discharge Disposition: Home or Self Care Attending Physician: Mike Valdivia MD Admitting Physician: Mike Valdivia MD Referring Physician: Mike Valdivia MD Allergies, Adverse Reactions, Alerts No Known Medication Allergies Assessment and Plan Future Appointments Immunizations Given and Recorded Vaccine Date Status [...] Daily, # 30 mL, 0 Refill(s), Pharmacy: [facility] #58, 163, cm, 05/12/22 14:13:00 EST, Height/Length [...] Daily, # 90 cap, 3 Refill(s), Pharmacy: [facility] #58, 162, cm, 03/11/22 7:16:00 EDT, Height/Length Dosing, 61, kg, 03/11/22 7:16:00 EDT, Weight Dosing Start Date: 03/20/22 Status: Ordered Multi Vitamin+ 0 Refill(s) Start Date: 02/24/22 Status: Ordered Valtrex 1 g oral tablet 1 g = 1 tab, Oral, every 12 hr, # 14 tab, 0 Refill(s), Pharmacy: [facility] #58, 162, cm, 03/11/22 7:16:00 EDT, Height/Length [...] Female 1Quit 1992 Patient Care team information Personnel Name: Elvis Lyons MD Address: Address: [id number] [place] [address]
--- OUTSIDE RECORDS SUMMARY | 2022-11-24 12:23 | XMS_ITS | Continuity of Care Document ---
Author Name Unknown Organization [facility] Address [address] [place] [address] Care Team Providers Care Rate Supervisor Name Role Phone Elvis Lyons Primary Care Physician [phone] Encounter [facility] Date(s): 06/28/22 - 06/28/[address] [address] Discharge Disposition: Home or Self Care Attending [...] Daily, # 30 mL, 0 Refill(s), Pharmacy: [facility] #58, 163, cm, 05/12/22 14:13:00 EST, Height/Length [...] Daily, # 90 cap, 3 Refill(s), Pharmacy: [facility] #58, 162, cm, 03/11/22 7:16:00 EDT, Height/Length Dosing, 61, kg, 03/11/22 7:16:00 EDT, Weight Dosing Start Date: 03/20/22 Status: Ordered Multi Vitamin+ 0 Refill(s) Start Date: 02/24/22 Status: Ordered Valtrex 1 g oral tablet 1 g = 1 tab, Oral, every 12 hr, # 14 tab, 0 Refill(s), Pharmacy: [facility] #58, 162, cm, 03/11/22 7:16:00 EDT, Height/Length [...] EGD (esophagogastroduodenosc opy) gastric outlet reduction 06/22/22 Complet ed Tonsillectomy 1950 Completed Cataract extraction 1 Com pleted , 05/2010 Social History Social History Type Response Tobacco Former tobacco user Tobacco Use:. 1 Sex Female 1Quit 1992 Patient Care team information Personnel Name: Elvis Lyons MD Address: Address: [address]
--- OUTSIDE RECORDS SUMMARY | 2022-11-24 12:23 | XMS_ITS | Continuity of Care Document ---
Author Name Unknown Organization [facility] Address [address] [place] [address] Care Team Providers Care Cork Compounder Name Role Phone Elvis Lyons Primary Care Physician Encounter [facility] Date(s): 07/07/22 - 07/07/[address] [address] Encounter Diagnosis Adenocarcinoma of esophagus(Discharge Diagnosis) - 07/07/22 Discharge Disposition: Home or Self Care Attending [...] Daily, # 30 mL, 0 Refill(s), Pharmacy: [facility] #58, 163, cm, 05/12/22 14:13:00 EST, Height/Length [...] Daily, # 90 cap, 3 Refill(s), Pharmacy: [facility] #58, 162, cm, 03/11/22 7:16:00 EDT, Height/Length Dosing, 61, kg, 03/11/22 7:16:00 EDT, Weight Dosing Start Date: 03/20/22 Status: Ordered Multi Vitamin+ 0 Refill(s) Start Date: 02/24/22 Status: Ordered Valtrex 1 g oral tablet 1 g = 1 tab, Oral, every 12 hr, # 14 tab, 0 Refill(s), Pharmacy: [facility] #58, 162, cm, 03/11/22 7:16:00 EDT, Height/Length [...] , 05/2010 Results Laboratory List Name Date Glucose POCT 07/07/22 Most recent to oldest [Reference Range]: 1 Glucose POC [74-106 mg/dL] 101 mg/dL (07/07/22 12:08 PM) Social History Social History Type Response Tobacco Former tobacco user Tobacco Use:. 1 Sex Female 1Quit 1992 Patient Care team information Care Team Personnel Name: Elvis Lyons MD Position: Physician Member Role: Informed Provider Address: Address: [address] Care Team Related Persons Name: RENARD COE Address: Home Name: SHAW MERCADO Address: Home
[2022-11-24 12:30] LABS: Abs Immature Grans 0.02 10^3/uL (0.0-0.06); Absolute Basophil Count 0.03 10^3/uL (0.0-0.2); Absolute Eosinophil Count 0.41 10^3/uL (0.0-0.7); Absolute Lymphocyte Count 0.95 10^3/uL (1.2-3.4); Absolute Monocyte Count 0.52 10^3/uL (0.1-0.8); Basophils % 0.7; Eosinophils % 9.4; HCT 29.1 % (36.0-46.0); HGB 9.6 g/dL (11.2-15.7); Immature Grans % 0.5; Lymphocytes % 21.7; MCH 35.2 pg (27.0-33.0); MCV 107 fL (80-95); MPV 9.5 fL (8.0-11.0); Monocytes % 11.9; Neutrophils % 55.8; Platelet Count 125 10^3/uL (130-400); RBC 2.73 10^6/uL (3.93-5.22); RDW-SD 54.5 fL; WBC 4.38 10^3/uL (4.4-10.8)
[2022-11-24 12:32] LABS: Absolute Neutrophil Count 2.44 10^3/uL (1.2-6.7)
[2022-11-24 13:11] LABS: ALT 15 U/L (14-59); AST 21 U/L (15-37); Alkaline Phosphatase 68 U/L (46-116); Anion Gap 4.4 mmol/L (3-11); BUN 22 mg/dL (7-18); Bilirubin, Total 0.4 mg/dL (0.2-1.0); CO2 30.6 mmol/L (21.0-32.0); CREATININE 0.6 mg/dL (0.55-1.02); Calcium 8.6 mg/dL (8.5-10.1); Chloride 105 mmol/L (98-107); Estimated GFR 87.36 (mL/min/1.73m2); Glucose 102 mg/dL (74-106); Potassium 4.7 mmol/L (3.5-5.1); Sodium 140 mmol/L (136-145); Total Protein 6.6 g/dL (6.4-8.2)
== END 2022-11-24 12:22 | disposition home or self-care (01) ==
LOC: LBO 12:21
PROVIDERS: PCP Family Medicine; Visit Provider Internal Medicine Hematology & Oncology
DX: C15.3 Malignant neoplasm of upper third of esophagus (principal)
CPT/HCPCS: 36415; 80053; 85025

== ENCOUNTER 2023-01-12 10:02 | Outpatient (CLI) | payer MEDICARE, SELFPAY ==
[2023-01-12 09:16] LABS: Absolute Basophil Count 0.02 10^3/uL (0.0-0.2); Absolute Eosinophil Count 0.14 10^3/uL (0.0-0.7); Absolute Lymphocyte Count 0.68 10^3/uL (1.2-3.4); Absolute Monocyte Count 0.41 10^3/uL (0.1-0.8); Absolute Neutrophil Count 2.44 10^3/uL (1.2-6.7); Basophils % 0.5; Eosinophils % 3.8; HGB 11.5 g/dL (11.2-15.7); Lymphocytes % 18.4; MCH 35.5 pg (27.0-33.0); MCHC 32.9 % (32.0-36.0); MCV 108 fL (80-95); MPV 9.1 fL (8.0-11.0); Monocytes % 11.1; Neutrophils % 66.2; Platelet Count 141 10^3/uL (130-400); RBC 3.24 10^6/uL (3.93-5.22); RDW-SD 48.1 fL; WBC 3.69 10^3/uL (4.4-10.8)
[2023-01-12 09:37] LABS: ALT 17 U/L (14-59); AST 14 U/L (15-37); Albumin 3.3 g/dL (3.4-5.0); Alkaline Phosphatase 76 U/L (46-116); Anion Gap 3.8 mmol/L (3-11); BUN 22 mg/dL (7-18); Bilirubin, Total 0.3 mg/dL (0.2-1.0); CO2 32.2 mmol/L (21.0-32.0); CREATININE 0.7 mg/dL (0.55-1.02); Chloride 105 mmol/L (98-107); Estimated GFR 84.17 (mL/min/1.73m2); Glucose 103 mg/dL (74-106); Potassium 4.4 mmol/L (3.5-5.1); Sodium 141 mmol/L (136-145); Total Protein 6.8 g/dL (6.4-8.2)
== END 2023-01-12 10:03 | disposition home or self-care (01) ==
LOC: LBO 10:02
PROVIDERS: PCP Family Medicine; Visit Provider Internal Medicine Hematology & Oncology
DX: C15.3 Malignant neoplasm of upper third of esophagus (principal)
CPT/HCPCS: 36415; 80053; 85025

== ENCOUNTER 2023-02-23 03:26 | Outpatient (CLI) | payer MEDICARE, SELFPAY ==
[2023-02-23 10:16] LABS: Abs Immature Grans 0.02 10^3/uL (0.0-0.06); Absolute Basophil Count 0.03 10^3/uL (0.0-0.2); Absolute Eosinophil Count 0.14 10^3/uL (0.0-0.7); Absolute Lymphocyte Count 0.74 10^3/uL (1.2-3.4); Absolute Monocyte Count 0.47 10^3/uL (0.1-0.8); Absolute Neutrophil Count 3.41 10^3/uL (1.2-6.7); Basophils % 0.6; Eosinophils % 2.9; HCT 36.2 % (36.0-46.0); HGB 11.9 g/dL (11.2-15.7); Immature Grans % 0.4; Lymphocytes % 15.4; MCHC 32.9 % (32.0-36.0); MPV 9.1 fL (8.0-11.0); Monocytes % 9.8; Neutrophils % 70.9; Platelet Count 166 10^3/uL (130-400); RDW 11.9 % (11.7-14.6); RDW-SD 46.4 fL; WBC 4.81 10^3/uL (4.4-10.8)
[2023-02-23 10:32] LABS: MCV 107 fL (80-95)
[2023-02-23 10:34] LABS: Diff Comment RBC Morph Reviewed; Macrocytosis 1+
[2023-02-23 10:45] LABS: ALT 16 U/L (14-59); AST 15 U/L (15-37); Albumin 3.3 g/dL (3.4-5.0); Alkaline Phosphatase 77 U/L (46-116); Anion Gap 4.7 mmol/L (3-11); BUN 19 mg/dL (7-18); Bilirubin, Total 0.3 mg/dL (0.2-1.0); CO2 31.3 mmol/L (21.0-32.0); CREATININE 0.8 mg/dL (0.55-1.02); Calcium 9.2 mg/dL (8.5-10.1); Chloride 102 mmol/L (98-107); Estimated GFR 71.71 (mL/min/1.73m2); Glucose 77 mg/dL (74-106); Potassium 4.5 mmol/L (3.5-5.1); Sodium 138 mmol/L (136-145); Total Protein 6.7 g/dL (6.4-8.2)
== END 2023-02-23 03:27 | disposition home or self-care (01) ==
LOC: LBO 03:26
PROVIDERS: PCP Family Medicine; Visit Provider Internal Medicine Hematology & Oncology
DX: C15.3 Malignant neoplasm of upper third of esophagus (principal)
CPT/HCPCS: 36415; 80053; 85025

== ENCOUNTER 2023-06-15 01:28 | Outpatient (CLI) | payer MEDICARE, SELFPAY ==
[2023-06-15 13:03] LABS: Abs Immature Grans 0.02 10^3/uL (0.0-0.06); Absolute Basophil Count 0.03 10^3/uL (0.0-0.2); Absolute Eosinophil Count 0.11 10^3/uL (0.0-0.7); Absolute Lymphocyte Count 0.83 10^3/uL (1.2-3.4); Absolute Monocyte Count 0.49 10^3/uL (0.1-0.8); Absolute Neutrophil Count 3.88 10^3/uL (1.2-6.7); Basophils % 0.6; Eosinophils % 2.1; HCT 35.1 % (36.0-46.0); Immature Grans % 0.4; Lymphocytes % 15.5; MCH 35.5 pg (27.0-33.0); MCHC 34.2 % (32.0-36.0); MCV 104 fL (80-95); MPV 8.4 fL (8.0-11.0); Monocytes % 9.1; Neutrophils % 72.3; Platelet Count 170 10^3/uL (130-400); RBC 3.38 10^6/uL (3.93-5.22); RDW 12.4 % (11.7-14.6); RDW-SD 47.4 fL; WBC 5.36 10^3/uL (4.4-10.8)
[2023-06-15 13:18] LABS: ALT 17 U/L (14-59); AST 18 U/L (15-37); Albumin 3.5 g/dL (3.4-5.0); Alkaline Phosphatase 69 U/L (46-116); Anion Gap 6.2 mmol/L (3-11); BUN 16 mg/dL (7-18); Bilirubin, Total 0.3 mg/dL (0.2-1.0); CO2 29.8 mmol/L (21.0-32.0); CREATININE 0.8 mg/dL (0.55-1.02); Calcium 8.6 mg/dL (8.5-10.1); Chloride 98 mmol/L (98-107); Estimated GFR 71.71 (mL/min/1.73m2); Glucose 109 mg/dL (74-106); Potassium 4.8 mmol/L (3.5-5.1); Sodium 134 mmol/L (136-145); Total Protein 6.9 g/dL (6.4-8.2)
== END 2023-06-15 01:29 | disposition home or self-care (01) ==
LOC: LBO 01:28
PROVIDERS: PCP Family Medicine; Visit Provider Internal Medicine Hematology & Oncology
DX: C15.3 Malignant neoplasm of upper third of esophagus (principal)
CPT/HCPCS: 36415; 80053; 85025

== ENCOUNTER 2023-08-17 02:49 | Outpatient (CLI) | payer MEDICARE, SELFPAY ==
[2023-08-17 13:18] LABS: Absolute Basophil Count 0.03 10^3/uL (0.0-0.2); Absolute Monocyte Count 0.45 10^3/uL (0.1-0.8); Absolute Neutrophil Count 2.88 10^3/uL (1.2-6.7); Basophils % 0.7; Eosinophils % 2.4; HCT 35.4 % (36.0-46.0); HGB 11.9 g/dL (11.2-15.7); Lymphocytes % 16.8; MCH 36.4 pg (27.0-33.0); MCHC 33.6 % (32.0-36.0); MCV 108 fL (80-95); MPV 8.9 fL (8.0-11.0); Monocytes % 10.8; Neutrophils % 69.3; Platelet Count 138 10^3/uL (130-400); RBC 3.27 10^6/uL (3.93-5.22); RDW 12.9 % (11.7-14.6); RDW-SD 52.2 fL; WBC 4.16 10^3/uL (4.4-10.8)
[2023-08-17 13:37] LABS: ALT 18 U/L (14-59); AST 20 U/L (15-37); Albumin 3.6 g/dL (3.4-5.0); Alkaline Phosphatase 65 U/L (46-116); Anion Gap 6.7 mmol/L (3-11); BUN 22 mg/dL (7-18); Bilirubin, Total 0.4 mg/dL (0.2-1.0); CO2 29.3 mmol/L (21.0-32.0); CREATININE 0.9 mg/dL (0.55-1.02); Calcium 8.5 mg/dL (8.5-10.1); Chloride 100 mmol/L (98-107); Estimated GFR 62.26 (mL/min/1.73m2); Glucose 106 mg/dL (74-106); Potassium 4.8 mmol/L (3.5-5.1); Sodium 136 mmol/L (136-145)
== END 2023-08-17 02:50 | disposition home or self-care (01) ==
LOC: LBO 02:49
PROVIDERS: PCP Family Medicine; Visit Provider Internal Medicine Hematology & Oncology
DX: C15.3 Malignant neoplasm of upper third of esophagus (principal)
CPT/HCPCS: 36415; 80053; 85025

== ENCOUNTER 2023-12-14 13:44 | Outpatient (CLI) | payer MEDICARE, SELFPAY ==
[2023-12-14 12:25] LABS: Abs Immature Grans 0.01 10^3/uL (0.0-0.06); Absolute Basophil Count 0.02 10^3/uL (0.0-0.2); Absolute Eosinophil Count 0.11 10^3/uL (0.0-0.7); Absolute Monocyte Count 0.45 10^3/uL (0.1-0.8); Absolute Neutrophil Count 2.75 10^3/uL (1.2-6.7); Basophils % 0.5 %; Eosinophils % 2.5 %; HCT 35.3 % (36.0-46.0); HGB 11.8 g/dL (11.2-15.7); Immature Grans % 0.2 %; Lymphocytes % 24.8 %; MCH 35.4 pg (27.0-33.0); MCHC 33.4 % (32.0-36.0); MCV 106 fL (80-95); MPV 8.6 fL (8.0-11.0); Monocytes % 10.1 %; Neutrophils % 61.9 %; Platelet Count 146 10^3/uL (130-400); RBC 3.33 10^6/uL (3.93-5.22); RDW 12.4 % (11.7-14.6); RDW-SD 48.9 fL; WBC 4.44 10^3/uL (4.4-10.8)
[2023-12-14 12:39] LABS: ALT 16 U/L (14-59); AST 15 U/L (15-37); Albumin 3.5 g/dL (3.4-5.0); Alkaline Phosphatase 66 U/L (46-116); Anion Gap 6.3 mmol/L (3-11); BUN 20 mg/dL (7-18); Bilirubin, Total 0.41 mg/dL (0.2-1.0); CO2 30.7 mmol/L (21.0-32.0); CREATININE 0.8 mg/dL (0.55-1.02); Calcium 8.9 mg/dL (8.5-10.1); Chloride 101 mmol/L (98-107); Estimated GFR 71.27 (mL/min/1.73m2); Glucose 105 mg/dL (74-106); Potassium 4.9 mmol/L (3.5-5.1); Sodium 138 mmol/L (136-145); Total Protein 6.9 g/dL (6.4-8.2)
[2023-12-14 12:42] LABS: Diff Comment RBC Morph Reviewed; Macrocytosis 2+; Polychromasia Present
== END 2023-12-14 13:45 | disposition home or self-care (01) ==
LOC: LBO 13:44
PROVIDERS: PCP Family Medicine; Visit Provider Internal Medicine Hematology & Oncology
DX: C15.3 Malignant neoplasm of upper third of esophagus (principal)
CPT/HCPCS: 36415; 80053; 85025

== ENCOUNTER 2024-03-14 01:56 | Outpatient (CLI) | payer MEDICARE, SELFPAY ==
[2024-03-14 11:56] LABS: Abs Immature Grans 0.02 10^3/uL (0.0-0.06); Absolute Basophil Count 0.04 10^3/uL (0.0-0.2); Absolute Eosinophil Count 0.12 10^3/uL (0.0-0.7); Absolute Lymphocyte Count 1.04 10^3/uL (1.2-3.4); Absolute Monocyte Count 0.56 10^3/uL (0.1-0.8); Absolute Neutrophil Count 3.64 10^3/uL (1.2-6.7); Basophils % 0.7 %; Eosinophils % 2.2 %; HCT 36.7 % (36.0-46.0); HGB 12.2 g/dL (11.2-15.7); Immature Grans % 0.4 %; Lymphocytes % 19.2 %; MCH 34.9 pg (27.0-33.0); MCHC 33.2 % (32.0-36.0); MCV 105 fL (80-95); MPV 8.8 fL (8.0-11.0); Monocytes % 10.3 %; Neutrophils % 67.2 %; Platelet Count 156 10^3/uL (130-400); RDW 12.2 % (11.7-14.6); RDW-SD 47.8 fL; WBC 5.42 10^3/uL (4.4-10.8)
[2024-03-14 12:12] LABS: ALT 18 U/L (14-59); AST 18 U/L (15-37); Albumin 3.7 g/dL (3.4-5.0); Alkaline Phosphatase 74 U/L (46-116); Anion Gap 8.6 mmol/L (3-11); BUN 23 mg/dL (7-18); Bilirubin, Total 0.36 mg/dL (0.2-1.0); CO2 29.4 mmol/L (21.0-32.0); CREATININE 0.8 mg/dL (0.55-1.02); Chloride 102 mmol/L (98-107); Estimated GFR 71.27 (mL/min/1.73m2); Glucose 98 mg/dL (74-106); Sodium 140 mmol/L (136-145); Total Protein 7.2 g/dL (6.4-8.2)
[2024-03-14 12:22] LABS: Calcium 9.4 mg/dL (8.5-10.1)
== END 2024-03-14 01:57 | disposition home or self-care (01) ==
PROVIDERS: PCP Family Medicine; Visit Provider Nurse Practitioner Family
DX: C15.9 Malignant neoplasm of esophagus, unspecified (principal)
CPT/HCPCS: 36415; 80053; 85025

== ENCOUNTER 2024-09-04 02:29 | Outpatient (CLI) | payer MEDICARE, SELFPAY ==
[2024-09-04 13:04] LABS: Abs Immature Grans 0.01 10^3/uL (0.0-0.06); Absolute Basophil Count 0.03 10^3/uL (0.0-0.2); Absolute Eosinophil Count 0.12 10^3/uL (0.0-0.7); Absolute Lymphocyte Count 1.06 10^3/uL (1.2-3.4); Absolute Neutrophil Count 2.91 10^3/uL (1.2-6.7); Basophils % 0.6 %; Eosinophils % 2.6 %; Immature Grans % 0.2 %; Lymphocytes % 22.9 %; MCH 34.6 pg (27.0-33.0); MCHC 32.4 % (32.0-36.0); MCV 107 fL (80-95); MPV 9.1 fL (8.0-11.0); Monocytes % 10.8 %; Neutrophils % 62.9 %; Platelet Count 145 10^3/uL (130-400); RBC 3.47 10^6/uL (3.93-5.22); RDW 11.9 % (11.7-14.6); RDW-SD 47.4 fL; WBC 4.63 10^3/uL (4.4-10.8)
[2024-09-04 13:33] LABS: Macrocytosis 1+
[2024-09-04 13:34] LABS: Diff Comment RBC Morph Reviewed
[2024-09-04 14:02] LABS: ALT 20 U/L (14-59); AST 15 U/L (15-37); Albumin 3.4 g/dL (3.4-5.0); Alkaline Phosphatase 81 U/L (46-116); Anion Gap 5.4 mmol/L (3-11); BUN 24 mg/dL (7-18); Bilirubin, Total 0.3 mg/dL (0.2-1.0); CO2 30.6 mmol/L (21.0-32.0); CREATININE 0.8 mg/dL (0.55-1.02); Calcium 9.1 mg/dL (8.5-10.1); Chloride 106 mmol/L (98-107); Estimated GFR 71.27 (mL/min/1.73m2); Glucose 113 mg/dL (74-106); Potassium 4.7 mmol/L (3.5-5.1); Sodium 142 mmol/L (136-145); TSH 6.23 uIU/mL (0.36-3.74); Total Protein 6.8 g/dL (6.4-8.2); Vitamin B12 366 pg/mL (193-986)
[2024-09-04 14:04] LABS: Folate > 20.0 ng/mL (8.6-20.0)
== END 2024-09-04 02:30 | disposition home or self-care (01) ==
PROVIDERS: PCP Family Medicine; Visit Provider Internal Medicine Hematology & Oncology
DX: R53.83 Other fatigue (principal); D75.89 Other specified diseases of blood and blood-forming organs; C15.4 Malignant neoplasm of middle third of esophagus
CPT/HCPCS: 36415; 80053; 82607; 82746; 84443; 85025

== ENCOUNTER 2024-12-04 02:11 | Outpatient (CLI) | payer MEDICARE, SELFPAY ==
[2024-12-04 12:27] LABS: Abs Immature Grans 0.02 10^3/uL (0.0-0.06); HCT 37.0 % (36.0-46.0); HGB 12.3 g/dL (11.2-15.7); Immature Grans % 0.4 %; MCH 34.7 pg (27.0-33.0); MCHC 33.2 % (32.0-36.0); MCV 105 fL (80-95); MPV 9.2 fL (8.0-11.0); Platelet Count 167 10^3/uL (130-400); RBC 3.54 10^6/uL (3.93-5.22); RDW 12.0 % (11.7-14.6); RDW-SD 46.8 fL; WBC 4.95 10^3/uL (4.4-10.8)
[2024-12-04 12:47] LABS: ALT 21 U/L (14-59); AST 16 U/L (15-37); Albumin 3.8 g/dL (3.4-5.0); Alkaline Phosphatase 82 U/L (46-116); Anion Gap 7.3 mmol/L (3-11); BUN 22 mg/dL (7-18); Bilirubin, Total 0.4 mg/dL (0.2-1.0); CO2 30.7 mmol/L (21.0-32.0); Calcium 9.2 mg/dL (8.5-10.1); Chloride 101 mmol/L (98-107); Estimated GFR 86.28 (mL/min/1.73m2); Glucose 99 mg/dL (74-106); Potassium 4.8 mmol/L (3.5-5.1); Sodium 139 mmol/L (136-145); Total Protein 7.4 g/dL (6.4-8.2)
== END 2024-12-04 02:12 | disposition home or self-care (01) ==
LOC: LBO 02:11
PROVIDERS: PCP Family Medicine; Visit Provider Internal Medicine Hematology & Oncology
DX: C15.5 Malignant neoplasm of lower third of esophagus (principal)
CPT/HCPCS: 36415; 80053; 85025

== ENCOUNTER 2025-03-05 13:07 | Outpatient (CLI) | payer MEDICARE, SELFPAY ==
[2025-03-05 13:23] LABS: Abs Immature Grans 0.01 10^3/uL (0.0-0.06); HCT 36.0 % (36.0-46.0); HGB 11.8 g/dL (11.2-15.7); Immature Grans % 0.2 %; MCH 34.1 pg (27.0-33.0); MCHC 32.8 % (32.0-36.0); MCV 104 fL (80-95); MPV 9.1 fL (8.0-11.0); Platelet Count 151 10^3/uL (130-400); RBC 3.46 10^6/uL (3.93-5.22); RDW 12.1 % (11.7-14.6); RDW-SD 46.2 fL; WBC 4.46 10^3/uL (4.4-10.8)
[2025-03-05 13:46] LABS: ALT 19 U/L (14-59); AST 18 U/L (15-37); Albumin 3.7 g/dL (3.4-5.0); Alkaline Phosphatase 90 U/L (46-116); Anion Gap 10.1 mmol/L (3-11); BUN 15 mg/dL (7-18); Bilirubin, Total 0.4 mg/dL (0.2-1.0); CO2 28.9 mmol/L (21.0-32.0); Calcium 8.3 mg/dL (8.5-10.1); Chloride 102 mmol/L (98-107); Estimated GFR 70.83 (mL/min/1.73m2); Glucose 98 mg/dL (74-106); Potassium 4.4 mmol/L (3.5-5.1); Sodium 141 mmol/L (136-145); Total Protein 6.9 g/dL (6.4-8.2)
== END 2025-03-05 13:08 | disposition home or self-care (01) ==
PROVIDERS: PCP Family Medicine; Visit Provider Nurse Practitioner Adult Health
DX: C15.9 Malignant neoplasm of esophagus, unspecified (principal)
CPT/HCPCS: 36415; 80053; 85025